=== PATIENT | female | born 1990 | race African-American/Black ===

== ENCOUNTER 2022-05-26 17:51 | Emergency (ER) | payer MEDICAID | END 2022-05-26 18:35 | disposition home or self-care (01) | LOC: BURERS 17:51 | DX: J32.9 Chronic sinusitis, unspecified (principal); H92.01 Otalgia, right ear | CPT/HCPCS: 99283 ==

== ENCOUNTER 2022-07-06 00:43 | Emergency (ER) | payer MEDICAID, OTHER ==
[2022-07-06] MEDS ORDERED: AMOXicillin 250 MG CAP ONE (01:20)
== END 2022-07-06 01:30 | disposition home or self-care (01) ==
LOC: BURERS 00:43
DX: J01.90 Acute sinusitis, unspecified (principal)
CPT/HCPCS: 99283